=== PATIENT | female | born 1995 | race Hispanic/Latino ===

== ENCOUNTER 2018-01-08 22:01 | Outpatient (CLI) | payer OTHER | END 2018-01-08 23:50 | disposition home or self-care (01) | LOC: M LDO 22:01 | DX: O47.1 False labor at or after 37 completed weeks of gestation (principal); Z3A.39 39 weeks gestation of pregnancy | CPT/HCPCS: 59025 ==

== ENCOUNTER 2018-01-21 13:48 | Inpatient (IN) | payer OTHER ==
[2018-01-21] MEDS ORDERED: PENICILLIN G POTASSIUM IV 5 MU in D5W MINI-BAG PLUS 100 ML IV (14:36)
[2018-01-21 15:19] LABS: HEMATOCRIT 31.2 % (36.0-47.0); HEMOGLOBIN 10.1 g/dl (12.0-16.0); MEAN CORPUSCULAR HEMOGLOBIN 25.3 pg (27.0-33.0); MEAN CORPUSCULAR HGB CONC 32.4 g/dl (32.0-36.5); PLATELET COUNT, AUTOMATED 204 10^3/uL (150-450); RED CELL DISTRIBUTION WIDTH 13.2 % (11.5-14.5); WHITE BLOOD COUNT 10.1 10^3/uL (4.0-10.0)
[2018-01-21] MEDS: miSOPROStol 50 MCG 1/2 TAB (S0191) PV ×2 (15:27→20:22)
[2018-01-21 15:45] LABS: AMPHETAMINES URINE REFLEX NEGATIVE (NEGATIVE); BARBITURATES URINE REFLEX NEGATIVE (NEGATIVE); BENZODIAZEPINES URINE REFLEX NEGATIVE (NEGATIVE); CANNABINOIDS URINE REFLEX NEGATIVE (NEGATIVE); COCAINE METABOLITE URINE REFLE NEGATIVE (NEGATIVE); METHADONE URINE REFLEX NEGATIVE (NEGATIVE); OPIATES URINE REFLEX NEGATIVE (NEGATIVE); PHENCYCLIDINE URINE REFLEX NEGATIVE (NEGATIVE)
[2018-01-21 22:11] LABS: HBSAG L&D NEGATIVE (NEGATIVE)
[2018-01-22] MEDS ORDERED: LR 1,000 ML IV (00:16)
[2018-01-22] MEDS: OXYTOCIN DRIP 30 UNITS in APPROPRIATE DILUENT 1 EA IV (00:38)
[2018-01-22] MEDS: LR 1,000 ML IV ×2 (00:38→18:23)
[2018-01-22] MEDS: NALBUPHINE HCL 10 MG/ML AMP (J2300) IV (02:59)
[2018-01-22] MEDS: PROMETHAZINE INJ 25 MG/ML VIAL (J2550) IV (03:00)
[2018-01-22] MEDS ORDERED: FENTANYL 2MCG/ML ROPIVACAINE 0.2% IN 0.9% NACL 200ML IVBAG As Ordered (06:48)
[2018-01-22] MEDS ORDERED: EPIDURAL COMMENT XX ×2 (08:00→15:00)
[2018-01-22] MEDS ORDERED: LACTATED RINGER'S 1000 ML IV (08:00)
[2018-01-22] MEDS ORDERED: ONDANSETRON 4MG/2ML VIAL (J2405) IV ×4 (08:00→15:00)
[2018-01-22] MEDS ORDERED: FENTANYL/ROPIVACAINE/NACL BAG 200 ML EPIDURAL (08:00)
[2018-01-22] MEDS ORDERED: ePHEDrine SULFATE 25 MG/5 ML(5MG/ML) SYRINGE IV (08:00)
[2018-01-22] MEDS ORDERED: NALOXONE INJ 0.4 MG/1 ML VIAL (J2310) IV ×4 (08:00→15:00)
[2018-01-22] MEDS ORDERED: diphenhydrAMINE INJ 50MG/ML VIAL (J1200) IV ×2 (08:00→15:00)
[2018-01-22] MEDS ORDERED: REFRIGERATOR IV KEYS XX ×2 (08:00→15:00)
[2018-01-22] MEDS ORDERED: EPIDURAL/PCA KEYS XX ×2 (08:00→15:00)
[2018-01-22] MEDS: LACTATED RINGER'S 1000 ML IV (09:23)
[2018-01-22] MEDS: PENICILLIN G POTASSIUM IV 5 MU in D5W MINI-BAG PLUS 100 ML IV (09:51)
[2018-01-22] MEDS ORDERED: ceFAZolin 2 GM/D5W 50 ML IV BAG (J0690 PER 500MG) As Ordered (12:04)
[2018-01-22] MEDS ORDERED: BICITRA 30ML SOLN UDC As Ordered (12:04)
[2018-01-22] MEDS ORDERED: LIDOCAINE PRES-FREE 2% 10ML AMP As Ordered (12:23)
[2018-01-22] MEDS ORDERED: KETOROLAC 60 MG/2 ML VIAL (J1885) As Ordered (12:44)
[2018-01-22] MEDS ORDERED: ONDANSETRON 4MG/2ML VIAL (J2405) As Ordered (12:44)
[2018-01-22] MEDS ORDERED: OXYTOCIN INJ 10 UNITS/ML VIAL (J2590) As Ordered ×2 (12:44)
[2018-01-22] MEDS ORDERED: NALBUPHINE HCL 10 MG/ML AMP (J2300) IV (13:35)
[2018-01-22] MEDS ORDERED: METOCLOPRAMIDE INJ 10MG/2ML VIAL (J2765) IV ×2 (13:35→13:45)
[2018-01-22] MEDS ORDERED: NORCO, ANEXSIA 5/325MG TABLET (HYDROcodone/ACETAMINOPHEN) PO (13:45)
[2018-01-22] MEDS ORDERED: PENICILLIN G POTASSIUM IV 2.5 MU in APPROPRIATE DILUENT 1 EA IV (14:00)
[2018-01-22] MEDS: FENTANYL/ROPIVACAINE/NACL BAG 200 ML EPIDURAL (15:00)
[2018-01-22] MEDS: KETOROLAC 30 MG/ML VIAL (J1885) IV (18:23)
[2018-01-22] MEDS: DOCUSATE SODIUM 100 MG CAP PO ×2 (20:09→21:00)
[2018-01-22] MEDS: PRENATAL VITAMINS CHEWABLE TABLET PO (20:09)
[2018-01-22] MEDS: BICITRA 30ML SOLN UDC PO (20:09)
[2018-01-23] MEDS: KETOROLAC 30 MG/ML VIAL (J1885) IV ×2 (01:35→06:20)
[2018-01-23] MEDS: LR 1,000 ML IV ×2 (01:35→05:34)
[2018-01-23 06:36] LABS: HEMATOCRIT 22.9 % (36.0-47.0); MEAN CORPUSCULAR HEMOGLOBIN 24.7 pg (27.0-33.0); MEAN CORPUSCULAR VOLUME 79.8 fl (80.0-96.0); PLATELET COUNT, AUTOMATED 150 10^3/uL (150-450); RED BLOOD COUNT 2.87 10^6/uL (4.00-5.40); RED CELL DISTRIBUTION WIDTH 13.6 % (11.5-14.5); WHITE BLOOD COUNT 9.3 10^3/uL (4.0-10.0)
[2018-01-23 06:40] LABS: HEMOGLOBIN 7.1 g/dl (12.0-16.0)
[2018-01-23] MEDS: DOCUSATE SODIUM 100 MG CAP PO ×2 (09:07→20:36)
[2018-01-23] MEDS: PRENATAL VITAMINS CHEWABLE TABLET PO (09:07)
[2018-01-23] MEDS: MEASLES,MUMPS,RUBELLA VACCINE INJ (MMR-II) (90707) SC (13:07)
[2018-01-23] MEDS: RHOGAM 300 MCG (1500 IU) INJ (J2790) IM (13:07)
[2018-01-23] MEDS: NORCO, ANEXSIA 5/325MG TABLET (HYDROcodone/ACETAMINOPHEN) PO ×3 (13:12→22:15)
[2018-01-24] MEDS: oxyCODONE 10 MG CR TAB PO (00:36)
[2018-01-24] MEDS: DOCUSATE SODIUM 100 MG CAP PO ×2 (08:08→19:25)
[2018-01-24] MEDS: NORCO, ANEXSIA 5/325MG TABLET (HYDROcodone/ACETAMINOPHEN) PO ×4 (08:08→23:56)
[2018-01-24] MEDS: PRENATAL VITAMINS CHEWABLE TABLET PO (08:08)
[2018-01-25] MEDS: oxyCODONE 5MG TAB PO (01:53)
[2018-01-25] MEDS: NORCO, ANEXSIA 5/325MG TABLET (HYDROcodone/ACETAMINOPHEN) PO (06:32)
[2018-01-25] MEDS: DOCUSATE SODIUM 100 MG CAP PO (09:21)
[2018-01-25] MEDS: PRENATAL VITAMINS CHEWABLE TABLET PO (09:21)
== END 2018-01-25 11:50 | disposition home or self-care (01) | DRG 766 ==
LOC: M LDI 13:48 → M OBS 01-22 15:30
PROVIDERS: Student in an Organized Health Care Education/Training Program
PROC: 10D00Z1 Extraction of Products of Conception, Low, Open Approach (ICD-10-PCS; principal; 2018-01-22 12:18)
PROC: 3E0DXGC Introduction of Other Therapeutic Substance into Mouth and Pharynx, External Approach (ICD-10-PCS; 2018-01-22 12:18)
DX: O48.0 Post-term pregnancy (principal); Z37.0 Single live birth; Z3A.41 41 weeks gestation of pregnancy; O99.824 Streptococcus B carrier state complicating childbirth; E66.9 Obesity, unspecified; Z88.5 Allergy status to narcotic agent; O76 Abnormality in fetal heart rate and rhythm complicating labor and delivery; O32.4XX0 Maternal care for high head at term, not applicable or unspecified; O61.0 Failed medical induction of labor; O99.214 Obesity complicating childbirth

== ENCOUNTER → 2019-08-27 | Outpatient (CLI) | payer OTHER ==
[~2019-08-27] MED LIST: COLA100C5 PO; NORC1TAB7 PO; PRENTAB9 PO
[2019-08-27 17:59] LABS: BASO # 0.1 10^3/uL (0.0-0.2); BASO % 0.8 % (0.0-1.0); EOS # 0.1 10^3/uL (0.0-0.5); EOS % 1.3 % (0.0-3.0); HEMATOCRIT 39.8 % (36.0-47.0); HEMOGLOBIN 12.9 g/dl (12.0-15.5); LYMPH # 2.2 10^3/uL (1.5-5.0); LYMPH % 22.4 % (24.0-44.0); MEAN CORPUSCULAR HEMOGLOBIN 26.5 pg (27.0-33.0); MEAN CORPUSCULAR HGB CONC 32.4 g/dl (32.0-36.5); MEAN CORPUSCULAR VOLUME 81.9 fl (80.0-96.0); MONO # 0.6 10^3/uL (0.0-0.8); MONO % 6.4 % (0.0-5.0); NEUTROPHILS # 6.8 10^3/uL (1.5-8.5); NEUTROPHILS % 68.8 % (36.0-66.0); PLATELET COUNT, AUTOMATED 292 10^3/uL (150-450); RED BLOOD COUNT 4.86 10^6/uL (4.00-5.40); WHITE BLOOD COUNT 9.9 10^3/uL (4.0-10.0)
[2019-08-27 18:24] LABS: ALBUMIN 4.4 GM/DL (3.2-5.2); ALT/SGPT 34 U/L (12-78); BILIRUBIN,TOTAL 0.4 MG/DL (0.2-1.0); BLOOD UREA NITROGEN 16 MG/DL (7-18); CALCIUM LEVEL 9.4 MG/DL (8.5-10.1); CARBON DIOXIDE LEVEL 27 MEQ/L (21-32); CHLORIDE LEVEL 104 MEQ/L (98-107); CREATININE FOR GFR 0.65 MG/DL (0.55-1.30); GLOMERULAR FILTRATION RATE > 60.0 (>60); GLUCOSE, FASTING 71 MG/DL (70-100); POTASSIUM SERUM 4.3 MEQ/L (3.5-5.1); SODIUM LEVEL 138 MEQ/L (136-145); TOTAL PROTEIN 8.2 GM/DL (6.4-8.2)
--- NOTE | 2019-08-28 08:23 | REP ---
CHEST: Two views. There is no evidence of acute infiltrate. No pleural effusion is seen. The heart is normal in size. The mediastinal silhouette is unremarkable. The visualized osseous structures are intact. IMPRESSION: No acute pulmonary disease. Electronically Signed by Harinder Avilez MD 08/28/2019 12:24 P
== END ==
LOC: M WUC 16:24
PROVIDERS: ATTEND Physician Assistant
DX: R07.1 Chest pain on breathing (principal)

== ENCOUNTER → 2020-06-28 | Outpatient (CLI) | payer OTHER | LOC: M LABSMTC 10:59 | PROVIDERS: ATTEND Anesthesiology | DX: Z03.818 Encounter for observation for suspected exposure to other biological agents ruled out (principal); Z11.59 Encounter for screening for other viral diseases ==

== ENCOUNTER 2020-07-03 07:50 | Day surgery (SDC) | payer OTHER ==
[~2020-07-03] VITALS: Ht 165.1 cm; Wt 71.1 kg
[~2020-07-03 07:50] MED LIST changes: +EPINEPHrine 1MG/ML INJ 30ML MD-VIAL As Ordered ONE; +LIDOCAINE W/EPINEPHRINE 1% 20ML VIAL As Ordered ONE; +METHYLENE BLUE 0.5% (5MG/ML) 10 ML AMP (PROVAYBLUE) As Ordered ONE
[2020-07-03] MEDS ORDERED: MIDAZOLAM INJ 2MG/2ML VIAL (J2250 PER 1MG) As Ordered ONE (08:35)
[2020-07-03] MEDS ORDERED: fentaNYL 100 MCG/2 ML INJECTION (J3010) As Ordered ONE (08:36)
[2020-07-03] MEDS ORDERED: ROCURONIUM BROMIDE 50 MG/5 ML VIAL As Ordered ONE (08:37)
[2020-07-03] MEDS ORDERED: propofoL 200 MG/20 ML VIAL As Ordered ONE ×2 (08:37→09:30)
[2020-07-03] MEDS ORDERED: ONDANSETRON 4MG/2ML VIAL As Ordered ONE (08:37)
[2020-07-03] MEDS ORDERED: dexameTHASONE 4 MG/ML 1ML VIAL (J1100 PER 1MG) As Ordered ONE ×2 (08:37→09:30)
[2020-07-03] MEDS ORDERED: SUGAMMADEX SODIUM 500 MG/5 ML VIAL (BRIDION) As Ordered ONE (08:37)
[2020-07-03] MEDS ORDERED: LR 1,000 ML IV SCH ×2 (10:45→11:00)
[2020-07-03] MEDS ORDERED: METOCLOPRAMIDE INJ 10MG/2ML VIAL (J2765 PER 1) IV PRN (10:45)
[2020-07-03] MEDS ORDERED: ONDANSETRON 4MG/2ML VIAL IV PRN (10:45)
[2020-07-03] MEDS ORDERED: PERCOCET 5MG/325MG TAB PO PRN (10:45)
[2020-07-03] MEDS ORDERED: fentaNYL 100 MCG/2 ML INJECTION (J3010) IV PRN (10:45)
[2020-07-03] MEDS ORDERED: ACETAMINOPH W/CODEINE #3 TAB UD PO PRN (11:00)
[2020-07-03 12:30] VITALS: BP 106/66
--- NOTE | 2020-07-26 12:24 | RO ---
DATE OF OPERATION: 07/03/2020 PREOPERATIVE DIAGNOSIS: Nasal septal deviation, chronic rhinitis. POSTOPERATIVE DIAGNOSIS: Nasal septal deviation, chronic rhinitis. OPERATIVE PROCEDURES: * Septoplasty. * Bilateral turbinectomies. PROCEDURE IN DETAIL: Under general anesthesia with the patient intubated, I used pledgets of adrenaline 1:100,000, infiltrated with lidocaine and epinephrine. I made an incision on the left side of the septum, elevating the mucoperichondrial and periosteal plane. I the quadrangular cartilage from the maxillary crest and ethmoid plate and then removed portions of the maxillary crest, ethmoid plate vomer, which were deviated. Once this was done, the septum was straight. I closed the incision with 4-0 chromic. I then made an incision into the inferior turbinate and elevated the mucosa off of the tree. I then removed the tree anteriorly on both sides with the microdebrider and forceps. The patient tolerated the procedure well. I closed that wound with 4-0 Vicryl. The patient was transferred to the recovery room in excellent condition. ESTIMATED BLOOD LOSS: Less than 20 mL. MTDD
== END 2020-07-03 12:35 | disposition home or self-care (01) ==
LOC: M SDC 07:50
PROVIDERS: ATTEND Otolaryngology
DX: J34.2 Deviated nasal septum (principal); J31.0 Chronic rhinitis
CPT/HCPCS: 30140; 30520; 81025; 88300; J1100; J2250; J2405; J3010; Q9968

== ENCOUNTER → 2020-12-12 | Outpatient (CLI) | payer SELFPAY ==
[~2020-12-12] MED LIST changes: -EPINEPHrine 1MG/ML INJ 30ML MD-VIAL As Ordered ONE; -LIDOCAINE W/EPINEPHRINE 1% 20ML VIAL As Ordered ONE; -METHYLENE BLUE 0.5% (5MG/ML) 10 ML AMP (PROVAYBLUE) As Ordered ONE
== END ==
LOC: M LABSMTC 10:15
PROVIDERS: ATTEND Pediatrics
DX: Z20.822 Contact with and (suspected) exposure to COVID-19 (principal)

== ENCOUNTER 2021-01-21 19:05 | Emergency (ER) | payer OTHER ==
[~2021-01-21] VITALS: Ht 165.1 cm; Wt 73.0 kg
[2021-01-21] MEDS ORDERED: GI COCKTAIL 50ML BTL(HYOSCYAMINE/MAALOX/LIDOCAINE VISCOUS)(1:3:1) PO ONE (21:20)
[2021-01-21 22:05] LABS: BASO # 0.1 10^3/uL (0.0-0.2); BASO % 0.6 % (0.0-1.0); EOS # 0.1 10^3/uL (0.0-0.5); EOS % 1.2 % (0.0-3.0); HEMATOCRIT 36.9 % (36.0-47.0); HEMOGLOBIN 11.9 g/dl (12.0-15.5); LYMPH # 2.3 10^3/uL (1.5-5.0); LYMPH % 26.7 % (24.0-44.0); MEAN CORPUSCULAR HEMOGLOBIN 26.9 pg (27.0-33.0); MEAN CORPUSCULAR HGB CONC 32.2 g/dl (32.0-36.5); MEAN CORPUSCULAR VOLUME 83.5 fl (80.0-96.0); MONO # 0.6 10^3/uL (0.0-0.8); MONO % 7.3 % (2.0-8.0); NEUTROPHILS # 5.5 10^3/uL (1.5-8.5); NEUTROPHILS % 63.9 % (36.0-66.0); PLATELET COUNT, AUTOMATED 243 10^3/uL (150-450); RED BLOOD COUNT 4.42 10^6/uL (4.00-5.40); WHITE BLOOD COUNT 8.6 10^3/uL (4.0-10.0)
--- NOTE | 2021-01-21 22:08 | REPVR ---
PROCEDURE INFORMATION: Exam: XR Chest Exam date and time: 01/21/21 (8:52pm) Age: 25 years old Clinical indication: Cough and SOB TECHNIQUE: Imaging protocol: XR of the chest Views: 2 views COMPARISON: Chest films of 08/27/19 FINDINGS: Lungs: Unremarkable. No consolidation. Pleural spaces: Unremarkable. No pleural effusions. No pneumothorax. Heart/Mediastinum: Unremarkable. No cardiomegaly. Bones/joints: Unremarkable. IMPRESSION: No acute findings. The lung doshi remain clear. Electronically signed by: Flori Romeo On 01/21/2021 22:07:55 PM
[2021-01-21 22:33] LABS: ALBUMIN 3.9 GM/DL (3.2-5.2); ALT/SGPT 20 U/L (12-78); BILIRUBIN,DIRECT < 0.1 MG/DL (0.0-0.2); BILIRUBIN,TOTAL 0.2 MG/DL (0.2-1.0); CK-MB VALUE MASS 1.5 NG/ML (<3.6); CPK CREATINE PHOSPHOKINASE 133 U/L (26-192); LIPASE 130 U/L (73-393); MB/CK RELATIVE INDEX 1.13 (< OR =4); TROPONIN I < 0.02 NG/ML (< 0.10)
[2021-01-21] MEDS ORDERED: OMEP40CA97 PO (22:47)
[2021-01-21 22:48] VITALS: BP 120/73
--- NOTE | 2021-01-22 05:18 | ECGEPIP ---
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
== END 2021-01-21 22:58 | disposition home or self-care (01) ==
LOC: M ED 19:05
DX: K21.9 Gastro-esophageal reflux disease without esophagitis (principal); R07.89 Other chest pain; K50.919 Crohn's disease, unspecified, with unspecified complications; Z90.49 Acquired absence of other specified parts of digestive tract
CPT/HCPCS: 71046; 80047; 80076; 82550; 82553; 83690; 84484; 84702; 85025; 85379; 93005; 99284; U0003

== ENCOUNTER → 2022-01-21 | Outpatient (CLI) | payer OTHER ==
[~2022-01-21] MED LIST changes: +OMEP40CA4 PO
[2022-01-21 15:40] LABS: BLOOD UREA NITROGEN 10 MG/DL (7-18); CALCIUM LEVEL 9.3 MG/DL (8.5-10.1); CARBON DIOXIDE LEVEL 32 MEQ/L (21-32); CHLORIDE LEVEL 107 MEQ/L (98-107); CREATININE FOR GFR 0.71 MG/DL (0.55-1.30); GLOMERULAR FILTRATION RATE > 60.0 (>60); GLUCOSE, FASTING 92 MG/DL (70-100); POTASSIUM SERUM 4.1 MEQ/L (3.5-5.1); SODIUM LEVEL 141 MEQ/L (136-145)
== END ==
LOC: M LAB 14:20
PROVIDERS: ATTEND Nurse Practitioner Adult Health
DX: F32.0 Major depressive disorder, single episode, mild (principal)

== ENCOUNTER → 2022-07-16 | Outpatient (CLI) | payer OTHER ==
[2022-07-16 10:03] LABS: BASO # 0.1 10^3/uL (0.0-0.2); BASO % 1.2 % (0.0-1.0); EOS # 0.1 10^3/uL (0.0-0.5); EOS % 1.7 % (0.0-3.0); HEMATOCRIT 43.3 % (36.0-47.0); HEMOGLOBIN 14.9 g/dl (12.0-15.5); LYMPH # 1.9 10^3/uL (1.5-5.0); LYMPH % 29.3 % (24.0-44.0); MEAN CORPUSCULAR HEMOGLOBIN 30.7 pg (27.0-33.0); MEAN CORPUSCULAR HGB CONC 34.4 g/dl (32.0-36.5); MEAN CORPUSCULAR VOLUME 89.3 fl (80.0-96.0); MONO # 0.4 10^3/uL (0.0-0.8); MONO % 5.9 % (2.0-8.0); NEUTROPHILS % 61.1 % (36.0-66.0); RED BLOOD COUNT 4.85 10^6/uL (4.00-5.40); WHITE BLOOD COUNT 6.6 10^3/uL (4.0-10.0)
[2022-07-16 10:28] LABS: ALBUMIN 4.2 GM/DL (3.2-5.2); ALT/SGPT 34 U/L (12-78); BILIRUBIN,TOTAL 0.3 MG/DL (0.2-1.0); BLOOD UREA NITROGEN 10 MG/DL (7-18); CALCIUM LEVEL 9.6 MG/DL (8.5-10.1); CARBON DIOXIDE LEVEL 28 MEQ/L (21-32); CHLORIDE LEVEL 106 MEQ/L (98-107); GLOMERULAR FILTRATION RATE > 60.0 (>60); GLUCOSE, FASTING 83 MG/DL (70-100); IRON (FE) 132 UG/DL (50-170); PERCENT SATURATION 35.6 % (13.2-45.0); POTASSIUM SERUM 4.4 MEQ/L (3.5-5.1); RHEUMATOID FACTOR QUANT < 10.0 IU/ML (<15.0); SODIUM LEVEL 136 MEQ/L (136-145); TOTAL IRON BINDING CAPACITY 371 UG/DL (250-450); TOTAL PROTEIN 7.9 GM/DL (6.4-8.2)
[2022-07-16 10:51] LABS: TOTAL 25(OH) VITAMIN D 22.5 NG/ML (30.0-100.0)
[2022-07-16 10:52] LABS: ERYTHROCYTE SEDIMENTATION RATE 2 mm/hr (0-20); VITAMIN B12 LEVEL 1017 PG/ML (247-911)
[2022-07-17 16:08] LABS: FOLATE 10.4 ng/mL (>3.0)
[2022-07-18 01:11] LABS: ANA (HEP2) Negative (.); CYCLIC CITRULLINATED PEPTIDE 4 units (0-19)
== END ==
LOC: M LAB 09:14
PROVIDERS: ATTEND Nurse Practitioner Adult Health
DX: M62.831 Muscle spasm of calf (principal); M25.50 Pain in unspecified joint

== ENCOUNTER → 2022-09-10 | Outpatient (REF) ==
[2022-09-10 13:36] LABS: RSV AMPLIFICATION NEGATIVE (NEGATIVE)
== END ==
LOC: M LABSMTC 11:51
PROVIDERS: ATTEND Family Medicine
DX: Z20.822 Contact with and (suspected) exposure to COVID-19 (principal)

== ENCOUNTER → 2023-01-06 | Outpatient (CLI) | payer OTHER ==
[2023-01-06 10:41] LABS: BASO # 0.1 10^3/uL (0.0-0.2); BASO % 0.9 % (0.0-1.0); EOS # 0.2 10^3/uL (0.0-0.5); EOS % 2.8 % (0.0-3.0); HEMATOCRIT 40.3 % (36.0-47.0); HEMOGLOBIN 13.7 g/dl (12.0-15.5); LYMPH # 1.9 10^3/uL (1.5-5.0); LYMPH % 26.1 % (24.0-44.0); MEAN CORPUSCULAR HEMOGLOBIN 29.7 pg (27.0-33.0); MEAN CORPUSCULAR VOLUME 87.4 fl (80.0-96.0); MONO # 0.5 10^3/uL (0.0-0.8); MONO % 6.4 % (2.0-8.0); NEUTROPHILS # 4.7 10^3/uL (1.5-8.5); PLATELET COUNT, AUTOMATED 259 10^3/uL (150-450); RED BLOOD COUNT 4.61 10^6/uL (4.00-5.40); WHITE BLOOD COUNT 7.4 10^3/uL (4.0-10.0)
[2023-01-06 11:13] LABS: IRON (FE) 122 UG/DL (50-170); PERCENT SATURATION 37.5 % (13.2-45.0); TOTAL IRON BINDING CAPACITY 325 UG/DL (250-425)
[2023-01-06 11:17] LABS: ALBUMIN 3.7 G/DL (3.2-5.2); ALKALINE PHOSPHATASE 83 U/L (46-116); ALT/SGPT 24 U/L (7.0-40); AST/SGOT 22 U/L (<34); BILIRUBIN,TOTAL 0.5 MG/DL (0.3-1.2); BLOOD UREA NITROGEN 12 MG/DL (9-23); CALCIUM LEVEL 9.3 MG/DL (8.5-10.1); CARBON DIOXIDE LEVEL 27 MMOL/L (20-31); CHLORIDE LEVEL 104 MMOL/L (98-107); CREATININE FOR GFR 0.63 MG/DL (0.55-1.30); FERRITIN 31.8 NG/ML (7.3-270.7); FOLATE 19.09 NG/ML (>5.4); FREE T4 1.08 NG/DL (0.89-1.76); GLOMERULAR FILTRATION RATE > 60.0 (>60); GLUCOSE, FASTING 83 MG/DL (60-100); MAGNESIUM LEVEL 1.7 MG/DL (1.8-2.4); PHOSPHORUS LEVEL 3.5 MG/DL (2.5-4.9); POTASSIUM SERUM 4.3 MMOL/L (3.5-5.1); SODIUM LEVEL 138 MMOL/L (136-145); THYROID STIMULATING HORMONE 1.914 uIU/ML (0.55-4.78); TOTAL 25(OH) VITAMIN D 27.7 NG/ML (20.0-100.0)
== END ==
LOC: M LAB 10:09
PROVIDERS: ATTEND Nurse Practitioner Adult Health
DX: R25.2 Cramp and spasm (principal); R53.83 Other fatigue; M25.50 Pain in unspecified joint; E55.9 Vitamin D deficiency, unspecified

== ENCOUNTER → 2023-07-21 | Outpatient (CLI) | payer OTHER ==
[2023-07-21 09:58] LABS: BASO # 0.1 10^3/uL (0.0-0.2); BASO % 0.9 % (0.0-1.0); EOS # 0.1 10^3/uL (0.0-0.5); EOS % 1.9 % (0.0-3.0); HEMATOCRIT 41.1 % (36.0-47.0); HEMOGLOBIN 13.9 g/dl (12.0-15.5); LYMPH # 1.9 10^3/uL (1.5-5.0); LYMPH % 25.5 % (24.0-44.0); MEAN CORPUSCULAR HEMOGLOBIN 29.3 pg (27.0-33.0); MEAN CORPUSCULAR HGB CONC 33.8 g/dl (32.0-36.5); MEAN CORPUSCULAR VOLUME 86.5 fl (80.0-96.0); MONO # 0.5 10^3/uL (0.0-0.8); MONO % 6.8 % (2.0-8.0); NEUTROPHILS # 4.8 10^3/uL (1.5-8.5); NEUTROPHILS % 64.4 % (36.0-66.0); PLATELET COUNT, AUTOMATED 275 10^3/uL (150-450); RED BLOOD COUNT 4.75 10^6/uL (4.00-5.40); WHITE BLOOD COUNT 7.4 10^3/uL (4.0-10.0)
[2023-07-21 10:05] LABS: ERYTHROCYTE SEDIMENTATION RATE 7 mm/hr (0-20)
[2023-07-21 10:33] LABS: C REACTIVE PROTEIN QUANTITATIV < 0.40 MG/DL (<1.0); LIPASE 36 U/L (12-53)
[2023-07-21 10:35] LABS: ALKALINE PHOSPHATASE 78 U/L (46-116); ALT/SGPT 59 U/L (7.0-40); AMYLASE 74 U/L (30-118); AST/SGOT 24 U/L (<34); BILIRUBIN,TOTAL 0.7 MG/DL (0.3-1.2); BLOOD UREA NITROGEN 10 MG/DL (9-23); CALCIUM LEVEL 9.1 MG/DL (8.5-10.1); CARBON DIOXIDE LEVEL 28 MMOL/L (20-31); CHLORIDE LEVEL 106 MMOL/L (98-107); CREATININE FOR GFR 0.64 MG/DL (0.55-1.30); GLOMERULAR FILTRATION RATE > 60.0 (>60); GLUCOSE, FASTING 86 MG/DL (60-100); IRON (FE) 134 UG/DL (50-170); PERCENT SATURATION 36.4 % (13.2-45.0); SODIUM LEVEL 141 MMOL/L (136-145); TOTAL IRON BINDING CAPACITY 368 UG/DL (250-425); TOTAL PROTEIN 7.2 G/DL (5.7-8.2)
[2023-07-21 10:36] LABS: TOTAL 25(OH) VITAMIN D 27.4 NG/ML (20.0-100.0)
[2023-07-21 10:37] LABS: FREE T4 1.14 NG/DL (0.89-1.76)
[2023-07-21 10:42] LABS: THYROID STIMULATING HORMONE 1.656 uIU/ML (0.55-4.78)
[2023-07-21 11:18] LABS: VITAMIN B12 LEVEL 933 PG/ML (211-911)
== END ==
LOC: M LAB 09:29
PROVIDERS: ATTEND Nurse Practitioner Adult Health
DX: R19.7 Diarrhea, unspecified (principal); E55.9 Vitamin D deficiency, unspecified; R11.0 Nausea

== ENCOUNTER → 2023-12-22 | Outpatient (REF) | LOC: M EMP 10:48 | PROVIDERS: ATTEND Family Medicine | DX: Z01.89 Encounter for other specified special examinations (principal) ==